=== PATIENT | male | born 1985 | race Caucasian/White ===

== ENCOUNTER 2017-02-26 20:03 | Inpatient (IN) | payer OTHER ==
[~2017-02-26] VITALS: Ht 147.3 cm; Wt 50.0 kg
[~2017-02-26 20:03] MED LIST: ACCUNEB0.63 MG/3 IH; ACIDOPHILUS1 EAC4 GT; ACIDOPHILUS1 EAC5 GT; ALBUTEROL2.5 MG/3 M IH; ALDACTAZIDE 251 EACH GT; ALDACTAZIDE 251 EACH PEG; ALDACTAZIDE 251 EACH PO; ALLEGRA ALLERG180 MG GT; ALLEGRA ALLERG180 MG PO; ALLEGRA180 MG PEG; ATROVENT 00.5 MG/2.5 IH; BACID1 CAP GT; BACTROBAN CREAM15 GM TP; BACTROBAN OINTM22 GM TP; BENZAMYCIN GE46.6 GM TP; CALCIUM300 MG PO; CALCIUM500 M4 GT; CALCIUM600 M1 GT; CEFEPIME HCL2 GM IM; CHILDREN'S12.5 MG/1 GT; DAILY VALUE1 EACH GT; DEPAKENE250 MG/5 M GT; DEPAKOTE125 MG GT; DUONEB 2.5-0.5 M3 ML IH; FLO-PRED15 MG/5 ML GT; FLONASE ALLERG9.9 ML BOTH NARES; FLONASE16 G1 BOTH NARES; FLONASE16 G1 NS; IBUPROFEN400 MG GT; JEVITY 1.2 CAL237 ML GT; JEVITY 1.2 CAL237 ML PO; KENALOG,ARISTOC15 G2 TP; LEVAQUIN500 MG GT; LEVOFLOXAC250 MG/50 GT; LOPERAMIDE2 M1 GT; MIRALAX17 GM GT; MULTIPLE VITAM1 EAC1 GT; MULTIVITAMIN1 EAC1 GT; NYSTATIN15 GM TP; NYSTOP60 GM TP; PATANOL OP100 DROP/5 BOTH EYES; PHENOBARBI30 MG/7.5 G-TUBE; PHENOBARBI30 MG/7.5 GT; POLYMYXIN BOTH EARS; PREDNISOLO15 MG/5 M1 PO; PREDNISONE1 MG/ML GT; PREDNISONE5 MG/1 ML PO; PRELONE15 MG/5 M1 PEG; PRELONE15 MG/5 ML; PRILOSEC20 MG PEG; PRILOSEC40 MG GT; PRILOSEC40 MG PO; PROVENTIL,2.5 MG/3 M IH; PULMICORT0.5 MG/21 IH; ROBINUL1 MG GT; ROBINUL1 MG PEG; ROBINUL1 MG PO; RONDEC GT; SINGULAIR10 MG GT; TYLENOL EXTRA500 MG GT
[2017-02-26 22:30] LABS: ALBUMIN 3.2 g/dL (3.2-4.8); CHLORIDE 92 mEq/L (99-109); POTASSIUM 5.2 mEq/L (3.7-5.4); SODIUM 132 mEq/L (136-147)
[2017-02-26 22:32] LABS: GLUCOSE 98 mg/dL (70-99)
[2017-02-26 22:34] LABS: TOTAL BILIRUBIN 0.3 mg/dL (0.0-1.0)
[2017-02-26 22:35] LABS: HEMATOCRIT 48.3 % (38.0-50.0); HEMOGLOBIN 17.4 G/DL (12.5-16.6); MCH 33.1 PG (29.0-34.0); PLATELET COUNT 219 K/uL (156-360); RBC DIS.WIDTH-CV 12.5 % (11.8-14.6); RBC DIS.WIDTH-SD 42.2 % (39-53); RED BLOOD COUNT 5.25 M/uL (4.00-5.50); WHITE BLOOD COUNT 21.4 K/uL (4.1-10.2)
[2017-02-26 22:36] LABS: ALKALINE PHOSPHATASE 144 IU/L (3-129); CREATININE 0.7 mg/dL (0.6-1.3); GFR ESTIMATE (CALCULATED) > 59 mL/min/ (58.99-99999)
[2017-02-26 22:37] LABS: AST (GOT) 99 IU/L (2-34); UREA NITROGEN (BUN) 20 mg/dL (9-23)
[2017-02-26 22:38] LABS: DIRECT BILIRUBIN 0.1 mg/dL (0.0-0.3)
[2017-02-26 22:39] LABS: ALT (GPT) 81 IU/L (3-49); LIPASE 7 U/L (1.0-51.0)
[2017-02-26 22:42] LABS: TROP-I INTERPRETATION NEGATIVE; TROPONIN-I < 0.01 ng/mL (0.0-0.30)
[2017-02-27] MEDS ORDERED: AVELOX400 MG GT (01:13)
[2017-02-27] MEDS ORDERED: POTASSIUM20 MEQ/11 GT (01:16)
[2017-02-27] MEDS ORDERED: VALPROIC A250 MG/5 M GT (01:20)
[2017-02-27] MEDS ORDERED: ALLEGRA ALLERG180 MG PO (01:25)
[2017-02-27] MEDS ORDERED: FLORANEX CHE1 TABLET GT (01:35)
[2017-02-27] MEDS ORDERED: 24 HOUR ALLER15.8 ML BOTH NARES (01:40)
[2017-02-27] MEDS ORDERED: HYDROCHLOROTH12.5 M3 GT (01:41)
[2017-02-27] MEDS ORDERED: MAGOX 400400 MG GT (01:43)
[2017-02-27] MEDS ORDERED: PREDNISONE2.5 MG GT (01:46)
[2017-02-27] MEDS ORDERED: PREDNISONE5 MG GT (01:47)
[2017-02-27] MEDS ORDERED: RANITIDINE15 MG/1 ML GT (01:49)
[2017-02-27] MEDS ORDERED: ALDACTONE25 MG GT (01:50)
[2017-02-27 02:01] LABS: BASOPHIL (%) 0.2 % (0-1); EOSINOPHIL (%) 0.3 % (0-5); EOSINOPHIL COUNT 0.1 K/uL (0-0.3); IMMATURE GRANULOCYTE (%) 0.4 % (0.0-0.7); LYMPHOCYTE (%) 9.8 % (15-42); MONOCYTE (%) 15.9 % (3-12); MONOCYTE COUNT 3.3 K/uL (0-0.8); NEUTROPHIL (%) 73.4 % (45-76); NEUTROPHIL COUNT 15.3 K/uL (1.8-6.4)
[2017-02-27 03:45] VITALS: BP 111/61
[2017-02-27 08:29] VITALS: BP 115/58
[2017-02-27 15:17] VITALS: BP 110/64
[2017-02-27 19:37] VITALS: BP 103/58
[2017-02-27 23:24] VITALS: BP 107/62
[2017-02-28 03:41] VITALS: BP 115/73
[2017-02-28 06:29] LABS: HEMATOCRIT 42.8 % (38.0-50.0); MCH 32.1 PG (29.0-34.0); MCHC 34.1 G/DL (30.0-36.0); MCV 94.1 FL (86-99); PLATELET COUNT 215 K/uL (156-360); RBC DIS.WIDTH-CV 12.5 % (11.8-14.6); RBC DIS.WIDTH-SD 43.1 % (39-53); RED BLOOD COUNT 4.55 M/uL (4.00-5.50); WHITE BLOOD COUNT 15.4 K/uL (4.1-10.2)
[2017-02-28 06:30] LABS: HEMOGLOBIN 14.6 G/DL (12.5-16.6)
[2017-02-28 08:41] VITALS: BP 99/55
[2017-02-28 08:50] LABS: CREATININE 0.5 MG/DL (0.6-1.3); GFR ESTIMATE (CALCULATED) > 59 mL/min/ (58.99-99999)
[2017-02-28 11:30] VITALS: BP 105/52
[2017-02-28 16:30] VITALS: BP 100/55
[2017-02-28 19:50] VITALS: BP 109/64
[2017-03-01 00:06] VITALS: BP 117/64
[2017-03-01 03:53] VITALS: BP 127/81
[2017-03-01 08:20] VITALS: BP 93/57
[2017-03-01 10:26] LABS: HEMATOCRIT 40.5 % (38.0-50.0); HEMOGLOBIN 14.2 G/DL (12.5-16.6); MCHC 35.1 G/DL (30.0-36.0); MCV 94.2 FL (86-99); PLATELET COUNT 204 K/uL (156-360); RBC DIS.WIDTH-CV 12.3 % (11.8-14.6); WHITE BLOOD COUNT 8.7 K/uL (4.1-10.2)
[2017-03-01 10:41] LABS: CHLORIDE 102 MEQ/L (99-109); CREATININE 0.5 MG/DL (0.6-1.3); GFR ESTIMATE (CALCULATED) > 59 mL/min/ (58.99-99999); GLUCOSE 78 mg/dL (70-99); SODIUM 136 MEQ/L (136-147); UREA NITROGEN (BUN) 8 mg/dL (9-23)
[2017-03-01 10:48] LABS: POTASSIUM 3.5 MEQ/L (3.7-5.4)
[2017-03-01 12:00] VITALS: BP 127/83
[2017-03-01 13:31] LABS: MAGNESIUM 1.7 mg/dl (1.3-2.7); PHOSPHORUS 2.9 mg/dL (2.5-4.9)
[2017-03-01 15:28] VITALS: BP 110/58
[2017-03-01 19:52] VITALS: BP 115/66
[2017-03-02] VITALS: BP 116/60
[2017-03-02 04:13] VITALS: BP 105/54
[2017-03-02] MEDS ORDERED: VANCOMYCIN1 GM/250 M IV (11:43)
[2017-03-02 11:54] VITALS: BP 122/68
[2017-03-02 13:49] LABS: HEMATOCRIT 43.4 % (38.0-50.0); MCH 31.9 PG (29.0-34.0); MCHC 34.6 G/DL (30.0-36.0); MCV 92.3 FL (86-99); PLATELET COUNT 252 K/uL (156-360); RBC DIS.WIDTH-SD 41.2 % (39-53); WHITE BLOOD COUNT 7.2 K/uL (4.1-10.2)
[2017-03-02 14:17] LABS: CHLORIDE 100 MEQ/L (99-109); CREATININE 0.4 MG/DL (0.6-1.3); GFR ESTIMATE (CALCULATED) > 59 mL/min/ (58.99-99999); POTASSIUM 3.7 MEQ/L (3.7-5.4); SODIUM 134 MEQ/L (136-147); UREA NITROGEN (BUN) 7 mg/dL (9-23)
[2017-03-02 14:22] LABS: GLUCOSE 98 mg/dL (70-99)
[2017-03-02 15:24] VITALS: BP 136/66
[2017-03-02 20:11] VITALS: BP 110/68
[2017-03-03] VITALS (7 sets, daily range): BP systolic 95–130; BP diastolic 52–75
[2017-03-04 08:58] VITALS: BP 132/70
[2017-03-04 09:46] LABS: HEMATOCRIT 43.4 % (38.0-50.0); HEMOGLOBIN 15.5 G/DL (12.5-16.6); MCH 33.3 PG (29.0-34.0); MCHC 35.7 G/DL (30.0-36.0); MCV 93.1 FL (86-99); PLATELET COUNT 282 K/uL (156-360); RBC DIS.WIDTH-CV 12.6 % (11.8-14.6); RED BLOOD COUNT 4.66 M/uL (4.00-5.50); WHITE BLOOD COUNT 10.1 K/uL (4.1-10.2)
[2017-03-04 12:10] LABS: CHLORIDE 102 MEQ/L (99-109); CREATININE 0.4 MG/DL (0.6-1.3); GFR ESTIMATE (CALCULATED) > 59 mL/min/ (58.99-99999); GLUCOSE 71 mg/dL (70-99); SODIUM 138 MEQ/L (136-147); UREA NITROGEN (BUN) 10 mg/dL (9-23)
[2017-03-04 17:10] VITALS: BP 129/71
[2017-03-04 20:04] VITALS: BP 130/74
[2017-03-04 23:02] VITALS: BP 138/74
[2017-03-05 05:10] VITALS: BP 132/70
[2017-03-05 07:57] VITALS: BP 129/77
== END 2017-03-05 12:01 | DRG 853 ==
LOC: EME 20:03 → EDOF 02-27 01:20 → 3EAST 02-27 01:20 → ENRESERV 02-27 01:22 → 3EAST 02-27 03:16
PROVIDERS: Emergency Medicine; Family Medicine; Hospitalist; Internal Medicine; Physician Assistant
DX: A41.9 Sepsis, unspecified organism (principal); L03.221 Cellulitis of neck; J15.212 Pneumonia due to Methicillin resistant Staphylococcus aureus; L02.11 Cutaneous abscess of neck; G80.8 Other cerebral palsy; G40.909 Epilepsy, unspecified, not intractable, without status epilepticus; F72 Severe intellectual disabilities; R47.01 Aphasia; G82.50 Quadriplegia, unspecified; R00.0 Tachycardia, unspecified; K21.9 Gastro-esophageal reflux disease without esophagitis; J96.20 Acute and chronic respiratory failure, unspecified whether with hypoxia or hypercapnia; J43.9 Emphysema, unspecified; I10 Essential (primary) hypertension; B95.62 Methicillin resistant Staphylococcus aureus infection as the cause of diseases classified elsewhere; Z93.1 Gastrostomy status; Z87.01 Personal history of pneumonia (recurrent); Z93.0 Tracheostomy status; Z74.01 Bed confinement status; Z79.899 Other long term (current) drug therapy
CPT/HCPCS: 31720; 70491; 71010; 71045; 76937; 80048; 80048 91; 80053; 80202; 82248; 82565; 83605; 83690; 83735; 84100; 84484; 85025; 85027; 85610; 85730; 87040; 87070; 87075; 87077; 87147; 87186; 87205; 87641; 88305; 93005; 94640; 94640 76; 94799; 99202; 99281; 99285; J0330; J0692; J1100; J1885; J2405; J3010; J3370; J7030; J7050; J7512